=== PATIENT | female | born 2000 | race Two or more races ===

== ENCOUNTER 2024-10-23 23:44 | Inpatient (IN) | payer OTHER ==
[~2024-10-23] VITALS: Ht 152.4 cm; Wt 83.9 kg
[2024-10-23 23:11] VITALS: BP 108/72
[2024-10-23] MEDS ORDERED: BETAMETHASONE ACETATE,SOD PHOS 30 MG/5 ML ML IM ONE (23:45)
[2024-10-23] MEDS ORDERED: MORPHINE SULFATE 4 MG/ML CARTRIDGE IV PRN (23:45)
[2024-10-23] MEDS ORDERED: MAGNESIUM SULFATE IN WATER 500 ML IV SCH (23:45)
[2024-10-23] MEDS ORDERED: RINGERS SOLUTION,LACTATED 1,000 ML IV SCH (23:45)
[2024-10-23] MEDS ORDERED: PRENATABS RX T1 EACH PO (23:48)
[2024-10-24] VITALS (7 sets, daily range): BP systolic 102–113; BP diastolic 62–74
[2024-10-24 00:59] LABS: BASO % 0.3 % (0.1-1.2); EOS # 0.12 (0.04-0.54); EOS % 1.0 % (0.7-7.0); LYMPH # 2.28 (1.18-3.74); LYMPH % 19.1 % (19.3-53.1); MEAN PLATELET VOLUME 11.00 fl (9.4-12.4); MONO # 0.94 (0.24-0.82); MONO % 7.9 % (4.7-12.5); NEUT # 8.49 (1.56-6.13); NEUT % 71.3 % (34.0-71.1); RED CELL DISTRIBUTION WIDTH 12.5 % (11.6-14.4)
[2024-10-24 01:00] LABS: URINE APPEARANCE Clear; URINE BILIRRUBIN Negative (NEGATIVE); URINE BLOOD Negative; URINE COLOR Yellow; URINE GLUCOSE Negative (NEGATIVE); URINE KETONE Negative (NEGATIVE); URINE LEUKOCYTE Negative; URINE NITRATE Negative; URINE PROTEIN Negative (NEGATIVE); URINE UROBILINOGEN 0.2 E.U./dl
[2024-10-24 01:04] LABS: URINE BACTERIA 1025.7 uL (0.0-1933); URINE EPITHELIAL CELLS 82.7 uL (0.0-38.8); URINE RBC 5.4 uL (0.0-20.8); URINE WBC 34.3 uL (0.0-23.2)
[2024-10-24 01:16] LABS: TYPE CELLS SQUAMOUS; URINE CAST 0.29 uL (0.0-1.40)
[2024-10-24 01:20] LABS: INR 0.94
[2024-10-24 01:28] LABS: ALT/SGPT 15.0 U/L (12-78); AST/SGOT 15.0 U/L (15-37); BILIRUBIN TOTAL 0.49 mg/dL (0.3-1.2); BUN CREA RATIO 14.0 (7.0-25.0); CREATININE SERUM 0.56 mg/dL (0.55-1.02); GFR 134.15; GLOBULINA 3.6 G/DL (2.4-3.5); GLUCOSE FASTING 83.0 mg/dL (65-100); OSMOLALITY SERUM 275.0 MOSM/KG (275-295)
[2024-10-24] MEDS ORDERED: AMPICILLIN SODIUM 2,000 MG VIAL IV NR (11:15)
[2024-10-24] MEDS ORDERED: AMPICILLIN SODIUM 1,000 MG VIAL IV SCH (13:00)
[2024-10-24] MEDS ORDERED: ACETAMINOPHEN 500 MG GEL..CAP PO PRN (21:15)
[2024-10-25] MEDS ORDERED: BETAMETHASONE ACETATE,SOD PHOS 30 MG/5 ML ML IM NR
[2024-10-25 03:08] VITALS: BP 97/58
[2024-10-25 06:20] VITALS: BP 90/58; O2SAT 97
== END 2024-10-25 08:39 | disposition home or self-care (01) | DRG 833 ==
LOC: LDR 23:44
PROVIDERS: ADMIT Obstetrics & Gynecology; ATTEND Obstetrics & Gynecology
PROC: 4A1HXCZ Monitoring of Products of Conception, Cardiac Rate, External Approach (ICD-10-PCS; principal; 2024-10-23)
DX: O26.893 Other specified pregnancy related conditions, third trimester (principal); R10.2 Pelvic and perineal pain; Z3A.36 36 weeks gestation of pregnancy

== ENCOUNTER 2024-10-29 05:20 | Inpatient (IN) | payer OTHER ==
[~2024-10-29] VITALS: Ht 154.9 cm; Wt 3.2 kg
[2024-10-29 04:24] VITALS: BP 115/74
[~2024-10-29 05:20] MED LIST: PRENATABS RX T1 EACH PO
[2024-10-29 08:22] VITALS: BP 115/74; BP 120/85
[2024-10-29] MEDS ORDERED: OXYTOCIN 1,000 ML IV ONE ×2 (08:45→19:30)
[2024-10-29] MEDS ORDERED: OXYTOCIN 20 UNITS/500ML RL PIGGYBAG IV ONE (08:55)
[2024-10-29] MEDS ORDERED: OXYTOCIN 500 ML IV ONE (09:00)
[2024-10-29 10:30] LABS: BASO % 0.3 % (0.1-1.2); EOS # 0.12 (0.04-0.54); EOS % 0.8 % (0.7-7.0); INR 0.94; LYMPH # 1.86 (1.18-3.74); LYMPH % 13.0 % (19.3-53.1); MEAN PLATELET VOLUME 11.60 fl (9.4-12.4); MONO # 0.84 (0.24-0.82); MONO % 5.9 % (4.7-12.5); NEUT # 11.42 (1.56-6.13); NEUT % 79.5 % (34.0-71.1); RED CELL DISTRIBUTION WIDTH 12.6 % (11.6-14.4)
[2024-10-29 11:48] VITALS: BP 106/60
[2024-10-29] MEDS ORDERED: MORPHINE SULFATE 4 MG/ML CARTRIDGE IV PRN (12:30)
[2024-10-29 15:52] VITALS: BP 120/83
[2024-10-29] MEDS ORDERED: ERYTHROMYCIN BASE OPHT 1GM EACH TUBE OP ONE (16:57)
[2024-10-29] MEDS ORDERED: CEFAZOLIN SODIUM 1,000 MG VIAL ONE (17:16)
[2024-10-29] MEDS ORDERED: OXYTOCIN 10 UNITS/ML VIAL IV ONE (17:30)
[2024-10-29] MEDS ORDERED: METHYLERGONOVINE MALEATE 0.2 MG/ML AMPUL ONE (18:07)
[2024-10-29] MEDS ORDERED: MORPHINE SULFATE 4 MG/ML VIAL IV ONE ×2 (20:35→22:00)
[2024-10-29] MEDS ORDERED: MORPHINE SULFATE 4 MG/ML CARTRIDGE IV SCH (21:00)
[2024-10-29] MEDS ORDERED: OXYTOCIN 10 UNITS/ML VIAL ONE (22:14)
[2024-10-29 23:03] VITALS: BP 103/63
[2024-10-30 04:30] VITALS: BP 107/67
[2024-10-30] MEDS ORDERED: OxyCODONE HCL 5 MG TABLET (ROXICODONE) PO SCH (05:00)
[2024-10-30] MEDS ORDERED: ACETAMINOPHEN 500 MG GEL..CAP PO SCH (06:00)
[2024-10-30 08:00] VITALS: BP 107/69
[2024-10-30] MEDS ORDERED: GABAPENTIN 300 MG CAPSULE PO SCH (09:00)
[2024-10-30] MEDS ORDERED: SIMETHICONE 125 MG CAPSULE PO SCH (09:00)
[2024-10-30] MEDS ORDERED: PNV,CALCIUM 72/IRON/FOLIC ACID 1 TAB TABLET PO SCH (09:00)
[2024-10-30] MEDS ORDERED: DOCUSATE SODIUM 100MG CAP PO SCH (09:00)
[2024-10-30 09:25] LABS: BASO % 0.2 % (0.1-1.2); EOS # 0.03 (0.04-0.54); EOS % 0.1 % (0.7-7.0); LYMPH # 1.58 (1.18-3.74); LYMPH % 7.6 % (19.3-53.1); MEAN PLATELET VOLUME 11.60 fl (9.4-12.4); MONO # 1.44 (0.24-0.82); MONO % 6.9 % (4.7-12.5); NEUT # 17.55 (1.56-6.13); NEUT % 84.7 % (34.0-71.1); RED CELL DISTRIBUTION WIDTH 12.9 % (11.6-14.4)
[2024-10-30 17:17] VITALS: BP 99/66
[2024-10-31] VITALS: BP 104/65; O2SAT 99
[2024-10-31 08:52] VITALS: BP 100/65
[2024-10-31 16:41] VITALS: BP 101/61
[2024-11-01] VITALS: BP 94/55; O2SAT 99
[2024-11-01 09:15] VITALS: BP 109/75; O2SAT 95
== END 2024-11-01 18:18 | disposition home or self-care (01) | DRG 788 ==
LOC: OBS/DEL 05:20 → LDR 08:25 → O/R 17:16 → OB/GYN 19:33
PROVIDERS: Obstetrics & Gynecology; Obstetrics & Gynecology Gynecology; ADMIT Obstetrics & Gynecology; ATTEND Obstetrics & Gynecology
PROC: 4A1HXCZ Monitoring of Products of Conception, Cardiac Rate, External Approach (ICD-10-PCS; 2024-10-29)
PROC: 10D00Z1 Extraction of Products of Conception, Low, Open Approach (ICD-10-PCS; principal; 2024-10-29 18:15)
DX: O77.0 Labor and delivery complicated by meconium in amniotic fluid (principal); Z3A.37 37 weeks gestation of pregnancy; Z37.0 Single live birth